=== PATIENT | female | born 1940 | race Two or more races ===

== ENCOUNTER 2025-02-22 21:12 | Inpatient (IN) | payer OTHER, MEDICAID ==
[~2025-02-22] VITALS: Ht 157.5 cm; Wt 78.9 kg
[2025-02-22 21:37] VITALS: PULSE 102; RESP 18; O2SAT 97
[2025-02-22] MEDS: SODIUM CHLORIDE 0.9% 1,000 ML IV ONE ×2 (21:45→21:47)
[2025-02-22 22:01] LABS: Hematocrit 33.6 % (36.0-46.0); Hemoglobin 11.5 g/dL (12.2-16.2); Mean Corpuscular Hemoglobin 28.9 pg (28.0-32.0); Mean Corpuscular Volume 84.6 fL (80.0-100.0); Nucleated Red Blood Cells % 0.0 %
--- NOTE | 2025-02-22 22:03 | ED.PDOC ---
History of Present Illness HPI Comments 84 y/o F, BIBA, with PMHx of UTI's presents to the ED for CC of weakness. Patient states, she has been experiencing symptoms of weakness with associated back pain and fever x3days. Patient reports, recently being discharge from [facility] for a UTI however, has still had symptoms of malaise. Patient denies urinary symptoms, confusion, disorientation, nausea, or vomiting. No other symptoms or modifying factors are present at this time. 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 Family History Family History: Unknown Social History Smoker: Non-Smoker Alcohol: Denies ETOH Use Drugs: Denies Drug Use Lives In: Home Constitutional: reports: fever, weakness; denies: chills, diaphoresis, fatigue, malaise, sweats, others EENTM: denies: blurred vision, double vision, ear bleeding, ear discharge, ear drainage, ear pain, ear ringing, eye pain, eye redness, hearing loss, mouth pain, mouth swelling, nasal discharge, nose bleeding, nose congestion, nose pain, photophobia, tearing, throat pain, throat swelling, voice changes, others Respiratory: denies: cough, hemoptysis, orthopnea, SOB at rest, shortness of breath, SOB with excertion, stridor, wheezing, others Cardiovascular: denies: chest pain, dizzy spells, diaphoresis, Dyspnea on exertion, edema, irregular heart beat, left arm pain, lightheadedness, palpitations, PND, syncope, others Gastrointestinal: denies: abdomen distended, abdominal pain, blood streaked bowels, constipated, diarrhea, dysphagia, difficulty swallowing, hematemesis, melena, nausea, poor appetite, poor fluid intake, rectal bleeding, rectal pain, vomiting, others Genitourinary: denies: abnormal vagina bleeding, burning, dyspareunia, dysuria, flank pain, frequency, hematuria, incontinence, pain, , vagina discharge, urgency, others Neurological: denies: dizziness, fainting, headache, left sided numbness, left sided weakness, numbness, paresthesia, pre-existing deficit, right sided numbness, right sided weakness, seizure, speech problems, tingling, tremors, weakness, others Musculoskeletal: reports: back pain; denies: gout, joint pain, joint swelling, muscle pain, muscle stiffness, neck pain, others Integumetry: denies: bruises, change in color, change in hair/nails, dryness, laceration, lesions, lumps, rash, wounds, others Allergic/Immunocompromised: denies: Difficulty Healing, Frequent Infections, Hives, Itching, others Hematologic/Lymphatic: denies: anemia, blood clots, easy bleeding, easy bruising, swollen glands, others Endocrine: denies: excessive hunger, excessive sweating, excessive thirst, excessive urination, flushing, intolerance to cold, intolerance to heat, unexplained weight gain, unexplained weight loss, others Psychiatric: denies: anxiety, bipolar disorder, depression, hopeless, panic disorder, schizophrenia, sleepless, suicidal, others All Other Systems: Reviewed and Negative Physical Exam General Appearance: No Apparent Distress, Normal HEENT: Normal ENT Inspection, Pharynx Normal Neck: Full Range of Motion, Non-Tender, Normal, Normal Inspection Respiratory: Chest Non-Tender, Lungs Clear, No Accessory Muscle Use, No Respiratory Distress, Normal Breath Sounds Cardiovascular: No Edema, No Murmur, No Gallop, Normal Peripheral Pulses, Regular Rate/Rhythm Breast Exam: Deferred Gastrointestinal: No Organomegaly, Non Tender, No Pulsatile Mass, Normal Bowel Sounds, Soft Genitalia: Deferred Pelvic: Deferred Rectal: Deferred Extremities: No calf tenderness, Normal capillary refill, Normal inspection, Normal range of motion, Non-tender, No pedal edema Musculoskeletal : Apperance: Normal Neurologic: Alert, leaf size picker II-XII nml as Tested, No Motor Deficits, Normal Affect, Normal Mood, No Sensory Deficits Cerebellar Function: Normal Reflexes: Normal Skin: Dry, Normal Color, Warm Lymphatic: No Adenopathy Was a procedure done? Was a procedure done?: No Differential Dx Considerations may include: UTI, DEHYDRATION, HYPOTENSION, ANEMIA, SEPSIS X-Ray, Labs, Meds, VS Vital Signs Date Time Temp Pulse Resp B/P (MAP) Pulse Ox O2 Delivery O2 Flow Rate FiO2 02/22/25 21:37 100.1 102 18 118/50 (72) 97 100.1 11/11/25 21:37 102 18 97 Room Air* 0 21 02/22/25 21:23 101.3 109 20 125/59 96 101.3 Lab Test 02/22/25 22:23 02/22/25 21:50 Range/Units Urine Color Dark-yellow Yellow Urine Clarity Turbid H Clear Urine pH 5.0 5.0-9.0 Urine Specific [place] 1.048 H 1.001-1.035 Urine Protein Trace H Negative Urine Ketones Trace Negative Urine Blood Negative Negative /uL Urine Nitrite Negative Negative Urine Bilirubin Negative Negative Urine Urobilinogen Normal Negative mg/dL Urine Leukocyte Esterase Negative Negative /uL Urine RBC 5 0 - 4 /hpf Urine Microscopic WBC 5 0-5 /HPF Urine Squamous Epithelial Cells Few <5 /hpf Urine Bacteria Few H None Seen /hpf Urine Mucus Few None Seen Urine Glucose 2+ H Normal mg/dL White Blood Count 9.0 4.4-10.8 10^3/uL Red Blood Count 3.97 L 4.0-5.20 10^6/uL Hemoglobin 11.5 L 12.2-16.2 g/dL Hematocrit 33.6 L 36.0-46.0 % Mean Corpuscular Volume 84.6 80.0-100.0 fL Mean Corpuscular Hemoglobin 28.9 28.0-32.0 pg Mean Corpuscular Hemoglobin Concent 34.1 32.0-36.0 g/dL Red Cell Distribution Width 13.5 11.8-14.3 % Platelet Count 214 140-450 10^3/uL Mean Platelet Volume 7.7 6.9-10.8 fL Neutrophils (%) (Auto) 68.2 37.0-80.0 % Lymphocytes (%) (Auto) 17.0 10.0-50.0 % Monocytes (%) (Auto) 8.7 0.0-12.0 % Eosinophils (%) (Auto) 5.3 0.0-7.0 % Basophils (%) (Auto) 0.8 0.0-2.0 % Neutrophils # (Auto) 6.2 1.6-8.6 10 ^3/uL Lymphocytes # (Auto) 1.5 0.4-5.4 10 ^3/uL Monocytes # (Auto) 0.8 0-1.3 10 ^3/uL Eosinophils # (Auto) 0.5 0-0.8 10 ^3/uL Basophils # (Auto) 0.1 0-0.2 10 ^3/uL Nucleated Red Blood Cells 0.0 % Sodium Level 129 L 136-145 mmol/L Potassium Level 5.2 H 3.5-5.1 mmol/L Chloride Level 94 L 98-107 mmol/L Carbon Dioxide Level 25 20-31 mmol/L Anion Gap 10 5-15 Blood Urea Nitrogen 24 H 9-23 mg/dL Creatinine 2.73 H 0.550-1.02 mg/dL Glomerular Filtration Rate Calc 17 >90 mL/min BUN/Creatinine Ratio 8.8 L 10.0-20.0 Serum Glucose 174 H 74-106 mg/dL Lactic Acid Level 1.8 0.4-2.0 mmol/L Calcium Level 9.5 8.7-10.4 mg/dL Total Bilirubin 0.4 0.2-1.0 mg/dL Aspartate Amino Transferase (AST) 24 13-40 U/L Alanine Aminotransferase (ALT) < 9 7-40 U/L Alkaline Phosphatase 69 46-116 U/L Total Protein 7.0 5.7-8.2 g/dL Albumin 3.4 3.2-4.8 g/dL Current Medications Medications (Trade) Dose Ordered Sig/Samir Route Start Time Stop Time Status Last Admin Sodium Chloride 1,000 ml @ 1,000 mls/hr Q1H ONCE IV 02/22/25 21:45 02/22/25 22:44 DC 02/22/25 21:47 X-Ray, Labs, Meds, VS Comment Patient will be admitted for urinary tract infection, complications Concerns of possible early onset sepsis, patient has high fever of 103 and tachycardia patient is a 1 L in his bolus, started on Rocephin 1 g IV, patient tolerating well, blood cultures obtained, Time of 1ST Reevaluation: 22:20 Reevaluation 1ST: Unchanged Patient Education/Counseling: Diagnosis, Treatment Family Education/Counseling: No Family Present SEPSIS Sepsis Screen Date sepsis recognized/suspect: Feb 22, 2025 Time Sepsis recognized/suspect: 2140 Recent Procedure: No On Antibiotic Therapy: No Respiratory Rate >20: No Heart Rate >90: No Temp<36 C (96.8 F) or >38.3 C: No SBP <90 or MAP <65 mmHG: No New Acute Mental Status Change: No Is the patient on CPAP, BIPAP,: No Physician Orders Sodium Chloride 0.9% (02/22/25 21:45) Vital Signs Q1HR (02/22/25 21:33) Saline Lock (02/22/25 21:33) Support Manager (02/22/25 ) Rectal/Core Temps Only (02/22/25 21:33) Notify Md If Abnormal Vs (02/22/25 21:33) Blood Culture (02/22/25 21:33) Chest Xray 1 View (02/22/25 21:33) Insert/Manage Urinary Catheter QSHIFT (02/22/25 22:18) Urine Bacterial Culture (02/22/25 22:18) Ceftriaxone 1gm/50ml (Rocephin) (02/22/25 23:00) Vital Signs Date Time Temp Pulse Resp B/P (MAP) Pulse Ox O2 Delivery O2 Flow Rate FiO2 02/22/25 21:37 100.1 102 18 118/50 (72) 97 100.1 02/22/25 21:37 102 18 97 Room Air* 0 21 02/22/25 21:23 101.3 109 20 125/59 96 101.3 Laboratory Tests Test 02/22/25 21:50 Lactic Acid Level 1.8 mmol/L (0.4-2.0) White Blood Count 9.0 10^3/uL (4.4-10.8) Medications Medications Dose Ordered Sig/Samir Route Start Time Stop Time Status Last Admin Dose Admin Sodium Chloride 1,000 ml @ 1,000 mls/hr Q1H ONCE IV 02/22/25 21:45 02/22/25 22:44 DC 02/22/25 21:47 Departure 1 Departure Time of Disposition: 22:52 Impression: Primary Impression: UTI (urinary tract infection) Qualified Codes: N30.01 - Acute cystitis with hematuria Disposition: ADMITTED INPATIENT Condition: Fair Discharged With: Self Critical Care Note Critical Care Time?: No Stability Stability form required: No Heart Score Heart Score: Heart Score Response (Comments) Value History N/A 0 EKG N/A 0 Age N/A 0 Risk Factors N/A 0 Troponin N/A 0 Total 0 I personally scribed for REE SHELLEY ([email or web address]) on 02/22/25 at 22:02. Electronically submitted by Heaven Christensen [email or web address]). REE SHELLEY Feb 22, 2025 22:02
[2025-02-22 22:17] LABS: Albumin 3.4 g/dL (3.2-4.8); Alkaline Phosphatase 69 U/L (46-116); Anion Gap 10 (5-15); BUN/Creatinine Ratio 8.8 (10.0-20.0); Calcium 9.5 mg/dL (8.7-10.4); Carbon Dioxide 25 mmol/L (20-31); Total Protein 7.0 g/dL (5.7-8.2)
[2025-02-22 22:18] LABS: Bilirubin, Total 0.4 mg/dL (0.2-1.0)
[2025-02-22 22:20] LABS: Alanine Aminotransferase < 9 U/L (7-40); Blood Urea Nitrogen 24 mg/dL (9-23); Chloride 94 mmol/L (98-107); Glucose 174 mg/dL (74-106); Potassium 5.2 mmol/L (3.5-5.1); Sodium 129 mmol/L (136-145)
--- NOTE | 2025-02-22 22:24 | DVH ---
CLINICAL HISTORY: Suspected Sepsis TECHNIQUE: Single view of the chest was obtained. COMPARISON: None FINDINGS: The heart size is top-normal with pulmonary vascular congestion. There is no dense consolidation. IMPRESSION: Pulmonary vascular congestion.
[2025-02-22 22:46] LABS: Urine Protein, UAD TRACE (Negative)
[2025-02-22] MEDS: HYDROcodone-ACET 5/325MG TAB PO ONE (23:30)
[2025-02-23] MEDS ORDERED: MORPHINE SULFATE INJ 2 MG/ml SYRG IV PRN (01:00)
[2025-02-23] MEDS ORDERED: ACETAMINOPHEN 325 MG TAB PO PRN (01:00)
[2025-02-23] MEDS ORDERED: DOCUSATE SOD 100 MG CAP PO PRN (01:00)
[2025-02-23] MEDS ORDERED: ONDANSETRON HCL 4 MG/2 ML VIAL IV PRN (01:00)
[2025-02-23] MEDS ORDERED: NITROGLYCERIN 0.4 MG SL TAB SL PRN (01:00)
[2025-02-23] MEDS ORDERED: DEXTROSE (50%) 50ML SYRG IV PRN (01:00)
[2025-02-23] MEDS: SODIUM CHLORIDE 0.9% 1,000 ML IV SCH ×3 (01:20→17:35)
--- NOTE | 2025-02-23 01:37 | DVH ---
INDICATION: Acute kidney injury TECHNIQUE: Multiple real-time sonographic images of the kidneys and bladder were obtained. COMPARISON: None FINDINGS: The right kidney measures 12.2 cm in length. There is normal echogenicity of the right kidney. No hydronephrosis. Trace right perinephric fluid is seen. The left kidney measures 10.2 cm in length. There is normal echogenicity of the left kidney. No hydronephrosis. The urinary bladder is contracted. IMPRESSION: 1. Trace right perinephric fluid. No hydronephrosis.
--- NOTE | 2025-02-23 02:16 | DVH ---
Exam: CT CT AB PEL WO CON-NO ORAL OR IV History: pain Comparison Study: None Technique: Multidetector spiral CT of the abdomen was performed from lung bases to pubic symphysis. Imaging was performed without IV contrast. Axial, coronal and sagittal multiplanar reformats were obtained from the axial data set by the technologist. Radiation Dose : 1. Abdomen/Pelvis: CTDIvol 8.2 mGy, DLP 468.96 mGy*cm. Findings: Evaluation of solid organs is limited due to lack of intravenous contrast use. Coronary artery calcifications noted. Cardiomegaly is Lung Bases: Minor hypoventilatory changes are seen in the lung bases dependently. Liver: The liver is normal in size. No focal lesions. Gallbladder and Biliary Tree: High-density material dependently in the gallbladder may represent small stones. Gallbladder otherwise appears unremarkable. Spleen: Unremarkable Pancreas: The pancreas is grossly normal in appearance. Adrenal Glands: Unremarkable Kidneys: Kidneys are grossly normal without calculi or hydronephrosis. Bladder: Grossly unremarkable for degree of distention. Bowel: The stomach is grossly normal in appearance. Small bowel and colon are normal in caliber and distribution. The appendix is not visualized; however, no secondary findings of acute appendicitis identified. Ascites: Absent Lymphadenopathy: There are enlarged lymph nodes seen along the lower abdominal aorta. Enlarged nodes are also seen along the left iliac chain. Largest node measures 1.8 cm. Abdominal Wall and Mesentery: Unremarkable. Vasculature: The visualized abdominal aorta is normal in size and caliber. Evaluation of abdominal and pelvic vessels is limited due to lack of intravenous contrast. Diffuse atherosclerotic disease is seen normal aorta Pelvic Organs: 2.7 cm right ovarian cyst is noted. Bladder is decompressed with a Fong catheter. Musculoskeletal: No aggressive focal bony lesions, acute fractures or dislocation. IMPRESSION: 1. No acute abnormalities. 2. Enlarged lower abdominal and left iliac chain lymph nodes. 3. 2.7 cm right ovarian cyst. 4. Cholelithiasis. Radiation optimization: All CT scans at this facility use at least one of these dose optimization techniques: automated exposure control mA and/or kV adjustment per patient size (includes targeted exams where dose is matched to clinical indication) or iterative reconstruction.
--- NOTE | 2025-02-23 03:24 | DVHHP2 ---
FILOMENA FAJARDO KEY OPERATOR 02/23/25 0324: History of Present Illness Reason for Visit: Generalized weakness History of Present Illness 84-year-old female with past medical history of DM, hypertension, CVA, TX s/p PCI with stent to LAD, CHF LVEF 45% 02/03/25, recent lymph node biopsy pending results for lymphoma evaluation presents with complaints of generalized weakness. Patient was recently discharged from [facility] where she was admitted for UTI sepsis. Patient presents with complaints of back pain, fever x3 days. On arrival to the emergency department patient is noted to be febrile 101.3, BP 125/59, heart rate 109. During the emergency department evaluation CBC is unremarkable, CMP Na 129, K5.2, BUN 24, creatinine 2.73, GFR 17. LA 1.8. On February 19, 2025 GFR 88 with normal BUN creatinine. At this ti me there are no complaints of confusion, shortness of breath, chest pain, palpitations nausea, vomiting. 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 Endocrine: Diabetes Smoke: No ALCOHOL: heavy Drugs: None Lives: with Family Review of Systems Constitutional: Yes: Fever, Chills, Weakness, Malaise; No: Sweats, Other Eyes: No: Pain, Vision change, Conjunctivae inflammation, Eyelid inflammation, Other, Redness ENT: No: Ear pain, Ear discharge, Nose pain, Nose discharge, Nose congestion, Mouth pain, Mouth swelling, Throat pain, Throat swelling, Other Respiratory: No: Cough, Dry, Shortness of breath, SOB with excertion, Wheezing, Hemoptysis, Pleuritic Pain, Sputum, Wheezing, Other Cardiovascular: No: Chest Pain, Palpitations, Orthopnea, Paroxysmal Noc. Dyspnea, Edema, Lt Headedness, Other Gastrointestinal: No: Nausea, Vomiting, Abdominal Pain, Diarrhea, Constipation, Melena, Hematochezia, Other Genitourinary: No Dysuria, No Frequency, No Incontinence, No Hematuria, No Retention, No Other Musculoskeletal: back pain; No: other, neck pain, shoulder pain, arm pain, hand pain, leg pain, foot pain Skin: No: Rash, Lesions, Jaundice, Bruising, Other Neurological: No: Weakness, Numbness, Incoordination, Change in speech, Confusion, Seizures, Other Allergies: Coded Allergies: NO KNOWN ALLERGIES (Unverified , 02/22/25) Medications Current Medications Medications Dose Ordered Sig/Samir Route Start Time Stop Time Status Last Admin Dose Admin Docusate Sodium 100 mg BIDPRN PRN PO 02/23/25 01:00 Acetaminophen 650 mg Q6HP PRN PO 02/23/25 01:00 Acetaminophen/ Hydrocodone Bitart 1 tab Q6HP PRN PO 02/23/25 01:00 Ondansetron HCl 4 mg Q4HP PRN IV 02/23/25 01:00 Nitroglycerin 0.4 mg Q5MINP PRN SL 02/23/25 01:00 Morphine Sulfate 2 mg Q30M PRN IV 02/23/25 01:00 Diagnostic Test (Pha) 1 strip ACHS 02/23/25 07:00 Insulin Human Regular ACHS SC 02/23/25 07:00 Dextrose 50 ml UD PRN IV 02/23/25 01:00 Cefepime HCl 50 ml @ 50 mls/hr BID IV 02/23/25 10:00 Sodium Chloride 1,000 ml @ 75 mls/hr [id number] IV 02/23/25 03:15 02/23/25 16:34 UNV Exam Vital Signs Vital Signs Date Time Temp Pulse Resp B/P (MAP) Pulse Ox O2 Delivery O2 Flow Rate FiO2 02/23/25 02:32 98.1 78 18 106/45 (65) 97 98.1 02/22/25 21:37 Room Air* 0 21 General Appearance: Alert, Oriented X3, Cooperative, moderate distress HEENT: Atraumatic, PERRLA Respiratory: Clear to auscultation, Normal air movement Cardiovascular: Regular rate, Normal S1, Normal S2 Abdominal: Normal bowel sounds, Soft, No tenderness Extremities: Normal pulses, Other (BLE edema 1+, BUE edema 1+) Skin: No rashes Neuro: Normal speech, Strength at 5/5 X4 ext Psych/Mental Status: Mental status NL, Mood NL Labs/Xrays Labs Test 02/22/25 22:23 02/22/25 21:50 Range/Units Urine Color Dark-yellow Yellow Urine Clarity Turbid H Clear Urine pH 5.0 5.0-9.0 Urine Specific [place] 1.048 H 1.001-1.035 Urine Protein Trace H Negative Urine Ketones Trace Negative Urine Blood Negative Negative /uL Urine Nitrite Negative Negative Urine Bilirubin Negative Negative Urine Urobilinogen Normal Negative mg/dL Urine Leukocyte Esterase Negative Negative /uL Urine RBC 5 0 - 4 /hpf Urine Microscopic WBC 5 0-5 /HPF Urine Squamous Epithelial Cells Few <5 /hpf Urine Bacteria Few H None Seen /hpf Urine Mucus Few None Seen Urine Glucose 2+ H Normal mg/dL White Blood Count 9.0 4.4-10.8 10^3/uL Red Blood Count 3.97 L 4.0-5.20 10^6/uL Hemoglobin 11.5 L 12.2-16.2 g/dL Hematocrit 33.6 L 36.0-46.0 % Mean Corpuscular Volume 84.6 80.0-100.0 fL Mean Corpuscular Hemoglobin 28.9 28.0-32.0 pg Mean Corpuscular Hemoglobin Concent 34.1 32.0-36.0 g/dL Red Cell Distribution Width 13.5 11.8-14.3 % Platelet Count 214 140-450 10^3/uL Mean Platelet Volume 7.7 6.9-10.8 fL Neutrophils (%) (Auto) 68.2 37.0-80.0 % Lymphocytes (%) (Auto) 17.0 10.0-50.0 % Monocytes (%) (Auto) 8.7 0.0-12.0 % Eosinophils (%) (Auto) 5.3 0.0-7.0 % Basophils (%) (Auto) 0.8 0.0-2.0 % Neutrophils # (Auto) 6.2 1.6-8.6 10 ^3/uL Lymphocytes # (Auto) 1.5 0.4-5.4 10 ^3/uL Monocytes # (Auto) 0.8 0-1.3 10 ^3/uL Eosinophils # (Auto) 0.5 0-0.8 10 ^3/uL Basophils # (Auto) 0.1 0-0.2 10 ^3/uL Nucleated Red Blood Cells 0.0 % Sodium Level 129 L 136-145 mmol/L Potassium Level 5.2 H 3.5-5.1 mmol/L Chloride Level 94 L 98-107 mmol/L Carbon Dioxide Level 25 20-31 mmol/L Anion Gap 10 5-15 Blood Urea Nitrogen 24 H 9-23 mg/dL Creatinine 2.73 H 0.550-1.02 mg/dL Glomerular Filtration Rate Calc 17 >90 mL/min BUN/Creatinine Ratio 8.8 L 10.0-20.0 Serum Glucose 174 H 74-106 mg/dL Lactic Acid Level 1.8 0.4-2.0 mmol/L Calcium Level 9.5 8.7-10.4 mg/dL Total Bilirubin 0.4 0.2-1.0 mg/dL Aspartate Amino Transferase (AST) 24 13-40 U/L Alanine Aminotransferase (ALT) < 9 7-40 U/L Alkaline Phosphatase 69 46-116 U/L Total Protein 7.0 5.7-8.2 g/dL Albumin 3.4 3.2-4.8 g/dL SEPSIS Sepsis Screen Date sepsis recognized/suspect: Feb 22, 2025 Time Sepsis recognized/suspect: 2140 Recent Procedure: No On Antibiotic Therapy: No Respiratory Rate >20: No Heart Rate >90: No Temp<36 C (96.8 F) or >38.3 C: No SBP <90 or MAP <65 mmHG: No New Acute Mental Status Change: No Is the patient on CPAP, BIPAP,: No Physician Orders Sodium Chloride 0.9% (02/22/25 21:45) Vital Signs Q1HR (02/22/25 21:33) Saline Lock (02/22/25 21:33) Deputy Chief Magistrate (02/22/25 ) Rectal/Core Temps Only (02/22/25 21:33) Notify Md If Abnormal Vs (02/22/25 21:33) Blood Culture (02/22/25 21:33) Chest Xray 1 View (02/22/25 21:33) Insert/Manage Urinary Catheter QSHIFT (02/22/25 22:18) Urine Bacterial Culture (02/22/25 22:18) Rapid Influenza A&B (02/23/25 00:34) Covid19 Antigen Vivian (02/23/25 ) Kidney (02/23/25 00:47) Admit (02/23/25 00:51) Code Status (02/23/25 00:51) Vital Signs .PER UNIT PROTOCOL (02/23/25 00:51) Review Orders With Adm.Md (02/23/25 00:51) Encourage Activity As Tolerate (02/23/25 00:51) Consistent Carb(Ccho)Diabetes (02/23/25 Breakfast) Oxygen By Face Mask (02/23/2551) Docusate Sodium Capsule (Colace Capsule) (02/23/25 01:00) Acetaminophen Tablet (Tylenol Tablet) (02/23/25 01:00) Notify Md Of Changes From Base (02/23/2551) Advance Directive (02/23/2551) Ct Ab Pel Wo Con-No Oral Or Iv (02/23/25) Basic Metabolic Panel (02/23/25 05:00) Basic Metabolic Panel (02/24/25 05:00) Basic Metabolic Panel (02/25/25 05:00) Basic Metabolic Panel (02/26/25 05:00) Basic Metabolic Panel (02/27/25 05:00) Complete Blood Count (02/23/25 05:00) Complete Blood Count (02/24/25 05:00) Complete Blood Count (02/25/25 05:00) Complete Blood Count (02/26/25 05:00) Complete Blood Count (02/27/25 05:00) Patient Condition (02/23/2551) Allergies (02/23/25) Hydrocodone-Acet 5/325mg Tab ([place] 5/32 (02/23/25 01:00) Ondansetron Hcl (Zofran) (02/23/25:00) Sequential Compression Device (02/23/25 ) Nitroglycerin Sublingual (Ntrostat Subli (02/23/25:00) Morphine Sulfate Injection (02/23/25:) Stat Ekg For Chest Pain (02/23/25) Notify Md Of Changes From Base (02/23/25) Cloth Shearing Supervisor For 24 Hours (02/23/2551) Emergency Dysrhythmia Protocol (02/23/25) Rhythm Strips Once Every Shift (02/23/25) Oxygen By Nasal Cannula (02/23/25) *Dr. Wilfredo Garcia -[place] (02/23/25) Glucose Blood (Accu-Chek Comfort Curve T (02/23/25 07:00) Insulin R (Human) (Insulin R) (02/23/25 07:00) Dextrose 50% Syringe (02/23/25 01:00) Cefepime 1gm/50ml (Maxipime 1gm/50ml) (02/23/25 10:00) Sodium Chloride 0.9% (02/23/25 03:15) Clopidogrel Bisulfate (Plavix) (02/23/25 10:00) Aspirin Tablet (02/23/25 10:00) Atorvastatin (Lipitor) (02/23/25 22:00) Vital Signs Date Time Temp Pulse Resp B/P (MAP) Pulse Ox O2 Delivery O2 Flow Rate FiO2 02/23/25 02:32 98.1 78 18 106/45 (65) 97 98.1 02/22/25 23:20 100.0 93 18 102/39 (60) 97 100.0 02/22/25 21:37 100.1 102 18 118/50 (72) 97 100.1 02/22/25 21:37 102 18 97 Room Air* 0 21 02/22/25 21:23 101.3 109 20 125/59 96 101.3 Laboratory Tests Test 02/22/25 21:50 Lactic Acid Level 1.8 mmol/L (0.4-2.0) White Blood Count 9.0 10^3/uL (4.4-10.8) Medications Medications Dose Ordered Sig/Samir Route Start Time Stop Time Status Last Admin Dose Admin Acetaminophen/ Hydrocodone Bitart 1 tab ONCE ONCE PO 02/22/25 23:30 02/22/25 23:31 DC 02/22/25 23:30 1 TAB Ceftriaxone Sodium 50 ml @ 100 mls/hr ONCE ONCE IV 02/22/25 23:00 02/22/25 23:29 DC 02/22/25 23:00 100 MLS/HR Sodium Chloride 1,000 ml @ 75 mls/hr [id number] IV 02/23/25 01:00 02/23/25 03:04 DC 02/23/25 01:20 75 MLS/HR Sodium Chloride 1,000 ml @ 130 mls/hr [id number] ONCE IV 02/22/25 21:45 02/23/25 05:26 02/22/25 21:45 130 MLS/HR Sodium Chloride 1,000 ml @ 1,000 mls/hr Q1H ONCE IV 02/22/25 21:45 02/22/25 22:44 DC 02/22/25 21:47 1,000 MLS/HR Assessment/Plan Assessment/Plan Acute kidney injury, [GFR 88(02/19/25) -> GFR 17] Hyperkalemia Fever likely secondary to UTI DM with hyperglycemia Enlarged lymph nodes s/p lymph node biopsy CAD s/p PCI to LAD 02/04/25 CHF estimated LVEF 45% Hx CVA Plan Admit to telemetry Nephrology consult. Renal ultrasound. Monitor BMP. Trend BUN/creatinine. Strict intake and output. Indwelling Fong catheter. Correct electrolytes as needed. Hold AMANDA / ARBS. IV ABX Viral swabs, Blood culture, urine cultures, pending IVF Blood glucose check with regular insulin sliding scale coverage Continue home medication. DVT ppx on oral anticoagulation Plan discussed with: Patient, Daughter My Orders Orders - FILOMENA FAJARDO NP Procedure Category Date Status Time Rapid Influenza A&B LAB 02/23/25 Logged 00:34 Covid19 Antigen Vivian LAB 02/23/25 Logged Kidney US 02/23/25 Resulted 00:47 Admit ADMIT 02/23/25 Transmitted 00:51 Code Status CODE 02/23/25 Transmitted 00:51 Vital Signs LONG 02/23/25 In Process 00:51 Review Orders With LONG 02/23/25 In Process Adm. 00:51 Encourage Activity As LONG 02/23/25 In Process Tolerate 00:51 Consistent DIET 02/23/25 Transmitted Carb(Ccho)Diabetes Breakfast Oxygen By Face Mask RT 02/23/25 Transmitted 00:51 Docusate Sodium PHA 02/23/25 In Process Capsule (Colace 01:00 Acetaminophen Tablet PHA 02/23/25 In Process (Tylenol Tablet) 01:00 Notify Of Changes LONG 02/23/25 In Process From Base 00:51 Advance Directive LONG 02/23/25 In Process 00:51 Ct Ab Pel Wo Con-No CT 02/23/25 Resulted Oral Or Iv 00:51 Basic Metabolic Panel LAB 02/23/25 Logged 05:00 Basic Metabolic Panel LAB 02/24/25 Verified 05:00 Basic Metabolic Panel LAB 02/25/25 Verified 05:00 Basic Metabolic Panel LAB 02/26/25 Verified 05:00 Basic Metabolic Panel LAB 02/27/25 Verified 05:00 Complete Blood Count LAB 02/23/25 Logged 05:00 Complete Blood Count LAB 02/24/25 Verified 05:00 Complete Blood Count LAB 02/25/25 Verified 05:00 Complete Blood Count LAB 02/26/25 Verified 05:00 Complete Blood Count LAB 02/27/25 Verified 05:00 Patient Condition ORDERS 02/23/25 Transmitted 00:51 Allergies [facility] 02/23/25 In Process 00:51 Hydrocodone-Acet PHA 02/23/25 In Process 5/325mg Tab ([place] 01:00 Ondansetron Hcl PHA 02/23/25 In Process (Zofran) 01:00 Sequential LONG 02/23/25 In Process Compression Device Nitroglycerin [facility] 02/23/25 In Process Sublingual (Ntrostat 01:00 Morphine Sulfate PHA 02/23/25 In Process Injection 01:00 Stat Ekg For Chest [facility] 02/23/25 In Process Pain 00:51 Notify Of Changes [facility] 02/23/25 In Process From Base 00:51 Cloth Shearing Supervisor For [facility] 02/23/25 In Process 24 Hours 00:51 Emergency Dysrhythmia [facility] 02/23/25 In Process Protocol 00:51 Rhythm Strips Once [facility] 02/23/25 In Process Every Shift 00:51 Oxygen By Nasal RT 02/23/25 Transmitted Cannula 00:51 *Dr. [facility] CONS 02/23/25 Transmitted -[place] 00:51 Glucose Blood PHA 02/23/25 In Process (Accu-Chek Comfort 07:00 Insulin R (Human) PHA 02/23/25 In Process (Insulin R) 07:00 Dextrose 50% Syringe PHA 02/23/25 In Process 01:00 Cefepime 1gm/50ml PHA 02/23/25 In Process (Maxipime 1gm/50ml) 10:00 Sodium Chloride 0.9% PHA 02/23/25 In Process 03:15 Clopidogrel Bisulfate PHA 02/23/25 In Process (Plavix) 10:00 Aspirin Tablet PHA 02/23/25 In Process 10:00 Atorvastatin (Lipitor) PHA 02/23/25 In Process 22:00 Date of Service: Feb 23, 2025 Billing Provider: SIGRID OLIVER MD Common Visit Codes: NOT BILLABLE SIGRID OLIVER MD 02/23/25 1255: Review of Systems Allergies: Coded Allergies: NO KNOWN ALLERGIES (Unverified , 02/22/25) Additional Comments Additional Comments Additional Comments Patient's chart is reviewed and discussed with the nurse practitioner. Patient is seen evaluated and admitted by KEY OPERATOR base filler operator. I agree with his evaluation, documentation, assessment and care plan as outlined. Patient's recent hospitalizations at [facility] personally reviewed by me. Patient's lymph node biopsy is pending and appears her fever and night sweats or secondary to type B symptoms from lymphoma not from infection. Till cultures are available we will empirically continue current antibiotic as she is on. FILOMENA FAJARDO NP Feb 23, 2025 03:24 SIGRID OLIVER MD Feb 23, 2025 12:55
[2025-02-23] MEDS: HYDROcodone-ACET 5/325MG TAB PO PRN (03:44)
[2025-02-23] MEDS: ACCU-CHEK COMFORT CURVE STRIP VI SCH (06:02)
[2025-02-23] MEDS: InsuLIN REG 1unit/0.01ml Soln (100units/ml) SC SCH (06:13)
[2025-02-23 06:49] LABS: Hematocrit 30.6 % (36.0-46.0); Hemoglobin 10.3 g/dL (12.2-16.2); Mean Corpuscular Hemoglobin 28.8 pg (28.0-32.0); Mean Corpuscular Volume 85.2 fL (80.0-100.0); Nucleated Red Blood Cells % 0.1 %
[2025-02-23 07:05] LABS: Anion Gap 10 (5-15); Carbon Dioxide 23 mmol/L (20-31); Potassium 5.1 mmol/L (3.5-5.1)
[2025-02-23 07:12] LABS: BUN/Creatinine Ratio 10.6 (10.0-20.0)
[2025-02-23 07:13] LABS: Blood Urea Nitrogen 32 mg/dL (9-23); Calcium 8.7 mg/dL (8.7-10.4); Chloride 95 mmol/L (98-107); Glucose 117 mg/dL (74-106); Sodium 128 mmol/L (136-145)
[2025-02-23] MEDS: CEFEPIME 1GM/50ML 50 ML IV SCH (11:23)
[2025-02-23] MEDS: CLOPIDOGREL BISULFATE 75 MG TAB PO SCH (11:24)
[2025-02-23] MEDS ORDERED: SODIUM CHLORIDE 0.9% 1,000 ML IV SCH (12:30)
[2025-02-23] MEDS: SODIUM CHLORIDE 0.9% 1,000 ML IV ONE (12:30)
[2025-02-23 12:40] LABS: COVID19 ANTIGEN SOFIA FIA NEGATIVE (NEGATIVE)
[2025-02-23 13:04] LABS: Uric Acid 7.3 mg/dL (3.1-7.8)
[2025-02-23 13:06] LABS: Magnesium 1.7 mg/dL (1.6-2.6)
--- NOTE | 2025-02-23 13:32 | DVHCONRES ---
Date Seen: Feb 23, 2025 Resident Creating Document: SHANDA TORRES RESDIENT History of Present Illness This is an 84-year-old lady with past medical history of diabetes type 2, hypertension, CVA, coronary artery disease (status post PCI 15 days back at [facility]), congestive heart failure (EF 45%), recent lymph node biopsy, came to the hospital due to fever, chills and generalized weakness. Patient was recently admitted at [facility] due to fever and was found to have UTI. Three days back patient was discharged from [facility] with oral antibiotic, but after 1 day the patient got back fever which prompted this visit. Allergies: Coded Allergies: NO KNOWN ALLERGIES (Unverified , 02/22/25) Home Meds Reported Medications Zolpidem Tartrate (Zolpidem Tartrate) 10 Mg Tab, 1 TAB PO QPM, #30 TAB 2 Refills 02/23/25 Current Medications Current Medications Medications (Trade) Dose Ordered Sig/Samir Route PRN Reason Start Time Stop Time Status Last Admin Sodium Chloride 1,000 ml @ 75 mls/hr [id number] IV 02/23/25 01:00 02/23/25 03:04 DC 02/23/25 01:20 Docusate Sodium (Colace Capsule) 100 mg BIDPRN PRN PO FOR CONSTIPATION 02/23/25 01:00 Acetaminophen (Tylenol Tablet) 650 mg Q6HP PRN PO PAIN SCALE 1-3 OR TEMP>100.4 02/23/25 01:00 Acetaminophen/ Hydrocodone Bitart ([place] 5/325MG Tab) 1 tab Q6HP PRN PO MODERATE PAIN (4-6 PAIN SCALE) 02/23/25 01:00 02/23/25 03:44 Ondansetron HCl (Zofran) 4 mg Q4HP PRN IV NAUSEA / VOMITING 02/23/25 01:00 Nitroglycerin (Ntrostat Sublingual) 0.4 mg Q5MINP PRN SL FOR CHEST PAIN 02/23/25 01:00 Morphine Sulfate 2 mg Q30M PRN IV FOR CHEST PAIN 02/23/25 01:00 Diagnostic Test (Pha) (Accu-Chek Comfort Curve T) 1 strip ACHS 02/23/25 07:00 02/23/25 11:30 Insulin Human Regular (InsuLIN R) ACHS SC 02/23/25 07:00 02/23/25 06:13 Dextrose 50 ml UD PRN IV Blood Sugar LESS THAN 60 02/23/25 01:00 Cefepime HCl 50 ml @ 50 mls/hr BID IV 02/23/25 10:00 02/23/25 11:23 Sodium Chloride 1,000 ml @ 75 mls/hr [id number] IV 02/23/25 03:15 02/23/25 12:29 DC 02/23/25 06:07 Clopidogrel Bisulfate (Plavix) 75 mg DAILY PO 02/23/25 10:00 02/23/25 11:24 Aspirin 81 mg DAILY PO 02/23/25 10:00 02/23/25 11:24 Atorvastatin Calcium (Lipitor) 80 mg HS PO 02/23/25 22:00 Sodium Chloride 1,000 ml @ 125 mls/hr Q8H IV 02/23/25 12:30 Review of Systems Patient Seen and examined at the bedside. Patient is still complaining of chills. Vital Signs Vital Signs Date Time Temp Pulse Resp B/P (MAP) Pulse Ox O2 Delivery O2 Flow Rate FiO2 02/23/25 10:00 78 16 125/51 (75) 95 02/23/25 08:00 97.7 97.7 02/22/25 21:37 Room Air* 0 21 Physical Exam General Appearance: Alert, Oriented X3, Cooperative, No acute distress HEENT: Atraumatic, PERRLA, EOMI, Mucous membrane moist/pink Respiratory: Bilateral lower zone crackles Cardiovascular: Regular rate, Normal S1, Normal S2, No murmurs, no chest wall tenderness Abdominal: Normal bowel sounds, Soft, No tenderness, No hepatospenomegaly, No masses Extremities: Bilateral trace edema Skin: No rashes, No breakdown, No significant lesion Neuro: Normal gait, Normal speech, Strength at 5/5 X4 ext, Normal tone, Sensation intact, Cranial nerves 3-12 NL, Reflexes 2+ Psych/Mental Status: Mental status NL, Mood NL Labs/Diagnostic Data Labs Test 02/23/25 11:46 02/23/25 11:42 02/23/25 06:10 02/22/25 22:23 Range/Units Influenza Type A Antigen Negative Negative Influenza Type B Antigen Negative Negative SARS-CoV-2 Antigen (Rapid) Negative NEGATIVE POC Glucose 137 H 70-106 mg/dl White Blood Count 8.1 4.4-10.8 10^3/uL Red Blood Count 3.59 L 4.0-5.20 10^6/uL Hemoglobin 10.3 L 12.2-16.2 g/dL Hematocrit 30.6 L 36.0-46.0 % Mean Corpuscular Volume 85.2 80.0-100.0 fL Mean Corpuscular Hemoglobin 28.8 28.0-32.0 pg Mean Corpuscular Hemoglobin Concent 33.8 32.0-36.0 g/dL Red Cell Distribution Width 13.8 11.8-14.3 % Platelet Count 185 140-450 10^3/uL Mean Platelet Volume 7.8 6.9-10.8 fL Neutrophils (%) (Auto) 47.1 37.0-80.0 % Lymphocytes (%) (Auto) 31.7 10.0-50.0 % Monocytes (%) (Auto) 14.5 H 0.0-12.0 % Eosinophils (%) (Auto) 5.9 0.0-7.0 % Basophils (%) (Auto) 0.8 0.0-2.0 % Neutrophils # (Auto) 3.8 1.6-8.6 10 ^3/uL Lymphocytes # (Auto) 2.6 0.4-5.4 10 ^3/uL Monocytes # (Auto) 1.2 0-1.3 10 ^3/uL Eosinophils # (Auto) 0.5 0-0.8 10 ^3/uL Basophils # (Auto) 0.1 0-0.2 10 ^3/uL Nucleated Red Blood Cells 0.1 % Sodium Level 128 L 136-145 mmol/L Potassium Level 5.1 3.5-5.1 mmol/L Chloride Level 95 L 98-107 mmol/L Carbon Dioxide Level 23 20-31 mmol/L Anion Gap 10 5-15 Blood Urea Nitrogen 32 H 9-23 mg/dL Creatinine 3.03 H 0.550-1.02 mg/dL Glomerular Filtration Rate Calc 15 >90 mL/min BUN/Creatinine Ratio 10.6 10.0-20.0 Serum Glucose 117 H 74-106 mg/dL Uric Acid 7.3 3.1-7.8 mg/dL Calcium Level 8.7 8.7-10.4 mg/dL Phosphorus Level 5.7 H 2.4-5.1 mg/dL Magnesium Level 1.7 1.6-2.6 mg/dL Urine Color Dark-yellow Yellow Urine Clarity Turbid H Clear Urine pH 5.0 5.0-9.0 Urine Specific [place] 1.048 H 1.001-1.035 Urine Protein Trace H Negative Urine Ketones Trace Negative Urine Blood Negative Negative /uL Urine Nitrite Negative Negative Urine Bilirubin Negative Negative Urine Urobilinogen Normal Negative mg/dL Urine Leukocyte Esterase Negative Negative /uL Urine RBC 5 0 - 4 /hpf Urine Microscopic WBC 5 0-5 /HPF Urine Squamous Epithelial Cells Few <5 /hpf Urine Bacteria Few H None Seen /hpf Urine Mucus Few None Seen Urine Glucose 2+ H Normal mg/dL Test 02/22/25 21:50 Range/Units Lactic Acid Level 1.8 0.4-2.0 mmol/L Total Bilirubin 0.4 0.2-1.0 mg/dL Aspartate Amino Transferase (AST) 24 13-40 U/L Alanine Aminotransferase (ALT) < 9 7-40 U/L Alkaline Phosphatase 69 46-116 U/L Total Protein 7.0 5.7-8.2 g/dL Albumin 3.4 3.2-4.8 g/dL Microbiology Date/Time Source Procedure Growth Status 02/22/25 22:18 Urine - Catheterized Urine Culture - Preliminary No growth Resulted Assessment This is an 84-year-old lady with past medical history of diabetes type 2, hypertension, CVA, coronary artery disease (status post PCI 15 days back at [facility]), congestive heart failure (EF 45%), recent lymph node biopsy, came to the hospital due to fever, chills and generalized weakness. Patient was recently admitted at [facility] due to fever and was found to have UTI. Three days back patient was discharged from [facility] with oral antibiotic, but after 1 day the patient got back fever which prompted this visit. CHANA /likely acute tubular necrosis secondary to IV contrast{ patient received two CT scans on February 19 and February 21 with IV contrast in [facility]} Baseline normal renal function GFR 86 creatinine less than one on February 19, 2025 Diabetes type 2 Hypertension Hyponatremia Hyperkalemia, resolved Urinary tract infection History of CAD, status post PCI Heart failure with reduced ejection fraction Mild anemia lymphadenopathy, status post biopsy, reports not available Plan/recommendation (Dr. Stewart) * IV fluid as ordered plus IV Lasix * Check urine sodium, creatinine urine protein ratio * Avoid nephrotoxic medication * Strict I&Os * We will follow up with the patient Thank you for giving us the opportunity to the care of your patient. Please call back if you have any questions/concerns. Addendum Patient seen and examined, plan discussed with resident. Agree with above, we will follow closely I have reviewed [facility] records patient was recently discharged two days ago with normal renal function however she has received two CT scans with IV contrast on February 19 and February 21 highly suspect Acute kidney injury secondary to IV contrast will follow ivf +lasix Plan discussed with: Patient, Other (RN) SHANDA TORRES Feb 23, 2025 13:32 KASHMIR STEWART MD Feb 23, 2025 17:15
[2025-02-23 15:38] LABS: Potassium 4.6 mmol/L (3.5-5.1)
[2025-02-23 15:39] LABS: Anion Gap 11 (5-15); Carbon Dioxide 22 mmol/L (20-31)
[2025-02-23 15:45] LABS: BUN/Creatinine Ratio 10.9 (10.0-20.0)
[2025-02-23 15:46] LABS: Blood Urea Nitrogen 34 mg/dL (9-23); Calcium 8.1 mg/dL (8.7-10.4); Chloride 96 mmol/L (98-107); Glucose 121 mg/dL (74-106); Sodium 129 mmol/L (136-145)
[2025-02-23 16:18] VITALS: BP 127/64; PULSE 86; RESP 19; TEMP 97.9; O2SAT 97
[2025-02-23] MEDS ORDERED: ZOLP10TA6 PO (16:22)
[2025-02-23 17:16] VITALS: BP 125/66; PULSE 80; RESP 18; TEMP 98.2; O2SAT 97
[2025-02-23] MEDS: FUROSEMIDE 40 MG/4 ML VIAL IV ONE (17:44)
[2025-02-23 20:00] VITALS: PULSE 92; PULSE 93; RESP 19; O2SAT 94
[2025-02-23 21:00] VITALS: BP 124/56; PULSE 92; RESP 19; TEMP 99.6; O2SAT 94
[2025-02-23] MEDS: ATORVASTATIN 20 MG TAB PO SCH (22:09)
[2025-02-23] MEDS: SENNA 8.6 MG TAB PO SCH (22:10)
[2025-02-23 22:13] LABS: Protein, Urine 589.3 mg/dL (1-14)
[2025-02-23] MEDS: MORPHINE SULFATE INJ 2 MG/ml SYRG IV PRN (22:28)
[2025-02-23] MEDS: MELATONIN 5 MG TAB PO SCH (23:16)
[2025-02-24] VITALS (8 sets, daily range): BP systolic 107–128; BP diastolic 55–80; PULSE 80–92; RESP 17–19; TEMP 97–99.7; O2SAT 93–97
[2025-02-24 00:18] LABS: Potassium 5.0 mmol/L (3.5-5.1)
[2025-02-24 00:19] LABS: Anion Gap 11 (5-15); Carbon Dioxide 21 mmol/L (20-31)
[2025-02-24 00:24] LABS: BUN/Creatinine Ratio 11.7 (10.0-20.0)
[2025-02-24 00:30] LABS: Blood Urea Nitrogen 35 mg/dL (9-23); Calcium 8.5 mg/dL (8.7-10.4); Chloride 96 mmol/L (98-107); Glucose 107 mg/dL (74-106); Sodium 128 mmol/L (136-145)
[2025-02-24 06:32] LABS: Hematocrit 32.1 % (36.0-46.0); Hemoglobin 10.9 g/dL (12.2-16.2); Mean Corpuscular Hemoglobin 28.7 pg (28.0-32.0); Mean Corpuscular Volume 85.0 fL (80.0-100.0); Nucleated Red Blood Cells % 0.1 %
[2025-02-24 06:44] LABS: Potassium 4.6 mmol/L (3.5-5.1)
[2025-02-24 06:45] LABS: Anion Gap 11 (5-15); Carbon Dioxide 21 mmol/L (20-31)
[2025-02-24 06:46] LABS: Calcium 8.8 mg/dL (8.7-10.4)
[2025-02-24 06:50] LABS: BUN/Creatinine Ratio 9.1 (10.0-20.0); Glucose 96 mg/dL (74-106)
[2025-02-24 06:56] LABS: Blood Urea Nitrogen 29 mg/dL (9-23); Chloride 97 mmol/L (98-107); Sodium 129 mmol/L (136-145)
[2025-02-24] MEDS: FUROSEMIDE 40 MG/4 ML VIAL IV SCH (08:30)
--- NOTE | 2025-02-24 12:07 | DVHPN2 ---
Progress Note - Dictate Date Seen: Feb 24, 2025 Medical Necessity Reason Pt with a Central, PICC or Fol: No Subjective Patient is clinically stable. Her urine output has slightly improved. However creatinine has not significantly improved. Evaluated by shipping team leader. Her daughter is at bedside and discussed with the her regarding care plan. 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 vital signs Vital Sign Date Time Temp Pulse Resp B/P (MAP) Pulse Ox O2 Delivery O2 Flow Rate FiO2 02/24/25 09:30 98.8 80 19 128/80 (96) 96 98.8 02/24/25 08:00 Room Air* 0 21 Total Intake and Output 02/23/25 02/23/25 02/24/25 15:00 23:00 07:00 Intake Total 1000 ml 250 ml 1550 ml Output Total 100 ml 3 ml Balance 1000 ml 150 ml 1547 ml medications Current Medications Medications Dose Ordered Sig/Samir Route Start Time Stop Time Status Last Admin Dose Admin Docusate Sodium 100 mg BIDPRN PRN PO 02/23/25 01:00 Acetaminophen 650 mg Q6HP PRN PO 02/23/25 01:00 Acetaminophen/ Hydrocodone Bitart 1 tab Q6HP PRN PO 02/23/25 01:00 02/23/25 15:34 1 TAB Ondansetron HCl 4 mg Q4HP PRN IV 02/23/25 01:00 Nitroglycerin 0.4 mg Q5MINP PRN SL 02/23/25 01:00 Morphine Sulfate 2 mg Q30M PRN IV 02/23/25 01:00 Diagnostic Test (Pha) 1 strip ACHS 02/23/25 07:00 02/24/25 11:35 1 STRIP Insulin Human Regular ACHS SC 02/23/25 07:00 02/24/25 11:53 2 UNITS Dextrose 50 ml UD PRN IV 02/23/25 01:00 Clopidogrel Bisulfate 75 mg DAILY PO 02/23/25 10:00 02/24/25 08:30 75 MG Aspirin 81 mg DAILY PO 02/23/25 10:00 02/24/25 08:30 81 MG Atorvastatin Calcium 80 mg HS PO 02/23/25 22:00 02/23/25 22:09 80 MG Sennosides 8.6 mg HS PO 02/23/25 22:00 02/23/25 22:10 8.6 MG Ceftriaxone Sodium 50 ml @ 100 mls/hr DAILY@09 IV 02/24/25 09:00 02/24/25 08:31 100 MLS/HR Furosemide 40 mg DAILY IV 02/24/25 10:00 02/24/25 08:30 40 MG Morphine Sulfate 2 mg Q4HPRN PRN IV 02/23/25 22:00 02/23/25 22:28 2 MG Melatonin 5 mg HS PO 02/23/25 22:00 02/23/25 23:16 5 MG objective Comfortable in bed alert awake oriented x3. Daughter at bedside. Patient complains of generalized myalgia and discomfort. HEENT neck supple no JVD. Heart regular rate and rhythm S1-S2. Lungs fair air movement without rales wheezes. Abdomen soft obese positive bowel sounds. Extremities nonpitting edema upper and lower extremities noted. laboratory and microbiology Laboratory Tests 02/24/25 05:34 Test 02/24/25 05:34 Range/Units Serum Glucose 96 74-106 mg/dL Assessment/Plan CHANA /likely acute tubular necrosis secondary to IV contrast{ patient received two CT scans on February 19 and February 21 with IV contrast in [facility]} Baseline normal renal function GFR 86 creatinine less than one on February 19, 2025 Diabetes type 2 Hypertension Hyponatremia Hyperkalemia, resolved Urinary tract infection History of CAD, status post PCI Heart failure with reduced ejection fraction Mild anemia lymphadenopathy, status post biopsy, reports per daughter shows lymphoma. Continue current IV fluids and Lasix and further management per Nephrology recommendations. Discussed with the daughter regarding biopsy rales of lymphoma and that she should follow up with oncologist upon discharge from this hospital once her kidney functions improved. Given her myalgia complaints I will cut down her Lipitor to 20 mg daily from 80 mg. DVT prophylaxis with the Lovenox. Physical therapy evaluation. Plan discussed with: Patient, Other SIGRID OLIVER MD Feb 24, 2025 12:07
--- NOTE | 2025-02-24 13:33 | DVHPN2 ---
Progress Note Date Seen: Feb 24, 2025 Resident Creating Document: SHANDA TORRES RESDIENT Medical Necessity Reason Pt with a Central, PICC or Fol: No Subjective Review of Systems Patient seen and examined at the bedside. Patient is feeling better since admission. Objective vital signs Vital Sign Date Time Temp Pulse Resp B/P (MAP) Pulse Ox O2 Delivery O2 Flow Rate FiO2 02/24/25 12:53 98.5 82 19 116/58 (77) 96 98.5 02/24/25 08:00 Room Air* 0 21 Total Intake and Output 02/23/25 02/23/25 02/24/25 15:00 23:00 07:00 Intake Total 1000 ml 250 ml 1550 ml Output Total 100 ml 3 ml Balance 1000 ml 150 ml 1547 ml medications Current Medications Medications Dose Ordered Sig/Samir Route Start Time Stop Time Status Last Admin Dose Admin Docusate Sodium 100 mg BIDPRN PRN PO 02/23/25 01:00 Acetaminophen 650 mg Q6HP PRN PO 02/23/25 01:00 Acetaminophen/ Hydrocodone Bitart 1 tab Q6HP PRN PO 02/23/25 01:00 02/23/25 15:34 1 TAB Ondansetron HCl 4 mg Q4HP PRN IV 02/23/25 01:00 Nitroglycerin 0.4 mg Q5MINP PRN SL 02/23/25 01:00 Morphine Sulfate 2 mg Q30M PRN IV 02/23/25 01:00 Diagnostic Test (Pha) 1 strip ACHS 02/23/25 07:00 02/24/25 11:35 1 STRIP Insulin Human Regular ACHS SC 02/23/25 07:00 02/24/25 11:53 2 UNITS Dextrose 50 ml UD PRN IV 02/23/25 01:00 Clopidogrel Bisulfate 75 mg DAILY PO 02/23/25 10:00 02/24/25 08:30 75 MG Aspirin 81 mg DAILY PO 02/23/25 10:00 02/24/25 08:30 81 MG Sennosides 8.6 mg HS PO 02/23/25 22:00 02/23/25 22:10 8.6 MG Ceftriaxone Sodium 50 ml @ 100 mls/hr DAILY@09 IV 02/24/25 09:00 02/24/25 08:31 100 MLS/HR Furosemide 40 mg DAILY IV 02/24/25 10:00 02/24/25 08:30 40 MG Morphine Sulfate 2 mg Q4HPRN PRN IV 02/23/25 22:00 02/23/25 22:28 2 MG Melatonin 5 mg HS PO 02/23/25 22:00 02/23/25 23:16 5 MG Atorvastatin Calcium 20 mg HS PO 02/24/25 22:00 UNV Enoxaparin Sodium 30 mg DAILY SC 02/25/25 10:00 UNV Examination General Appearance: Alert, Oriented X3, Cooperative, No acute distress HEENT: Atraumatic, PERRLA, EOMI, Mucous membrane moist/pink Respiratory: Bilateral lower zone crackles Cardiovascular: Regular rate, Normal S1, Normal S2, No murmurs, no chest wall tenderness Abdominal: Normal bowel sounds, Soft, No tenderness, No hepatospenomegaly, No masses Extremities: Bilateral trace edema Skin: No rashes, No breakdown, No significant lesion Neuro: Normal gait, Normal speech, Strength at 5/5 X4 ext, Normal tone, Sensation intact, Cranial nerves 3-12 NL, Reflexes 2+ Psych/Mental Status: Mental status NL, Mood NL laboratory and microbiology Laboratory Tests 02/24/25 05:34 Test 02/24/25 05:34 Range/Units Serum Glucose 96 74-106 mg/dL Microbiology Date/Time Source Procedure Growth Status 02/22/25 22:18 Urine - Catheterized Urine Culture - Preliminary Resulted 02/22/25 21:52 Blood Blood Culture - Preliminary NO GROWTH AFTER 24 HOURS OF INCUBATION. Resulted Labs and/or images reviewed: Labs reviewed by me, Image(s) reviewed by me Problem List/Assessment/Plan Problem List/Assessment/Plan This is an 84-year-old lady with past medical history of diabetes type 2, hypertension, CVA, coronary artery disease (status post PCI 15 days back at [facility]), congestive heart failure (EF 45%), recent lymph node biopsy, came to the hospital due to fever, chills and generalized weakness. Patient was recently admitted at [facility] due to fever and was found to have UTI. Three days back patient was discharged from [facility] with oral antibiotic, but after 1 day the patient got back fever which prompted this visit. CHANA /likely acute tubular necrosis secondary to IV contrast{ patient received two CT scans on February 19 and February 21 with IV contrast in [facility]} Baseline normal renal function GFR 86 creatinine less than one on February 19, 2025 Diabetes type 2 Hypertension Hyponatremia Hyperkalemia, resolved Urinary tract infection History of CAD, status post PCI Heart failure with reduced ejection fraction Mild anemia lymphadenopathy, status post biopsy, reports not available Plan/recommendation (Dr. Stewart) * IV Lasix 40 mg b.i.d. * Discontinue IV fluid * Repeat urine protein creatinine ratio, check urine and serum immunofixation, electrophoresis and kappa and lambda light chain * Avoid nephrotoxic medication * Strict I&Os * We will follow up with the patient Thank you for giving us the opportunity to the care of your patient. Please call back if you have any questions/concerns. Addendum Patient seen and examined, plan discussed with resident. Agree with above, we will follow closely Nephrotic range proteinuria repeat Urine analysis PCR Monoclonal gammopathy workup as ordered Plan discussed with: Patient, Daughter, Other (RN) SHANDA TORRES Feb 24, 2025 13:33 KASHMIR STEWART MD Feb 24, 2025 17:30
[2025-02-24] MEDS ORDERED: METO25TA93 PO (15:17)
[2025-02-24] MEDS ORDERED: CEFD300C2 PO (15:17)
[2025-02-24] MEDS ORDERED: CLOP75TA70 PO (15:18)
[2025-02-24] MEDS ORDERED: HYDR-4902 PO (15:19)
[2025-02-24] MEDS ORDERED: ATOR-47 PO (15:20)
[2025-02-24] MEDS ORDERED: GABA-339 PO (15:20)
[2025-02-24] MEDS ORDERED: FURO40TA4 PO (15:21)
[2025-02-24] MEDS ORDERED: ASPI325T6 PO (15:21)
[2025-02-24] MEDS ORDERED: EMPA1TAB PO (15:22)
[2025-02-24] MEDS ORDERED: POTA-36 PO (15:23)
--- NOTE | 2025-02-24 21:42 | DVHINCON2 ---
Date of service: Feb 24, 2025 Referring Physician Transfer of care due to insurance. Reason for Consultation Medical management. History of Present Illness Alesia Flores is a 84-year-old F with a Past Medical History pertinent for DM, Hypertension, CVA, AL s/p PCI with stent to LAD, CHF LVEF 45% 02/03/25 and recent lymph node biopsy pending results for lymphoma evaluation who presented to the hospital with complaints of generalized weakness, back pain and fever x 3 days. Patient was recently discharged from [facility] where she was admitted for UTI sepsis. While in ED, patient was found febrile 101.3. Initial CBC unremarkable, CMP remarkable for low Na 129, K5.2, Creatinine 2.73 with BUN 24, GFR 17. Lactic acid 1.8. Renal US reported trace right perinephric fluid; no hydronephrosis. CT Abdomen Pelvis without contrast reported no acute abnormalities; enlarged lower abdominal and left iliac chain lymph nodes; 2.7 cm right ovarian cyst; cholelithiasis. Allergies: Coded Allergies: NO KNOWN ALLERGIES (Unverified , 02/22/25) Home Meds Reported Medications Potassium Chloride (POTASSIUM CHLORIDE CR) 10 Meq Tb, 8 MEQ PO BID, TAB 02/24/25 Empagliflozin (Jardiance) 10 Mg Tab, 10 MG PO, TAB 02/24/25 Aspirin (Aspirin) 325 Mg Tab, 81 MG PO DAILY for 30 Days, MG 02/24/25 Furosemide (Furosemide) 40 Mg Tab, 40 MG PO DAILY for 30 Days 02/24/25 Gabapentin (Gabapentin) 600 Mg Tab, 600 MG PO TID for 30 Days, MG 02/24/25 Atorvastatin Calcium (ATORVASTATIN CALCIUM) 80 Mg Tab, 1 TAB PO HS, #30 TAB 5 Refills 02/24/25 Hydrocodone-Acetaminophen (Hydrocodone Bitartrate/AC 5-325 mg) 1 Tab Tab, 1 TAB PO QID, TAB 02/24/25 Clopidogrel Bisulfate (CLOPIDOGREL) 75 Mg Tab, 75 MG PO DAILY for 30 Days, MG 02/24/25 Metoprolol Succinate (Metoprolol Succinate Er) 25 Mg Tab, 25 MG PO DAILY for 30 Days, MG 02/24/25 Cefdinir (Cefdinir) 300 Mg Cap, 1 CAP PO BID, #14 CAP 02/24/25 Zolpidem Tartrate (Zolpidem Tartrate) 10 Mg Tab, 1 TAB PO QPM, #30 TAB 2 Refills 02/23/25 Current Medications Current Medications Medications (Trade) Dose Ordered Sig/Samir Route PRN Reason Start Time Stop Time Status Last Admin Atorvastatin Calcium (Lipitor) 80 mg HS PO 02/23/25 22:00 02/24/25 12:04 DC 02/23/25 22:09 Sennosides (Senokot Tablet) 8.6 mg HS PO 02/23/25 22:00 02/23/25 22:10 Ceftriaxone Sodium 50 ml @ 100 mls/hr DAILY@09 IV 02/24/25 09:00 02/24/25 08:31 Furosemide (Lasix Injection) 40 mg DAILY IV 02/24/25 10:00 02/24/25 08:30 Morphine Sulfate 2 mg Q4HPRN PRN IV SEVERE PAIN (7-10 PAIN SCALE) 02/23/25 22:00 02/23/25 22:28 Melatonin (Melatonin) 5 mg HS PO 02/23/25 22:00 02/23/25 23:16 Atorvastatin Calcium (Lipitor) 20 mg HS PO 02/24/25 22:00 Enoxaparin Sodium (Lovenox) 30 mg DAILY SC 02/25/25 10:00 Review of Systems Constitutional: Yes: Fever, Chills, Weakness, Malaise; No: Sweats, Other Eyes: No: Pain, Vision change, Conjunctivae inflammation, Eyelid inflammation, Other, Redness ENT: No: Ear pain, Ear discharge, Nose pain, Nose discharge, Nose congestion, Mouth pain, Mouth swelling, Throat pain, Throat swelling, Other Respiratory: No: Cough, Dry, Shortness of breath, SOB with excertion, Wheezing, Hemoptysis, Pleuritic Pain, Sputum, Wheezing, Other Cardiovascular: No: Chest Pain, Palpitations, Orthopnea, Paroxysmal Noc. Dyspnea, Edema, Lt Headedness, Other Gastrointestinal: No: Nausea, Vomiting, Abdominal Pain, Diarrhea, Constipation, Melena, Hematochezia, Other Genitourinary: No Dysuria, No Frequency, No Incontinence, No Hematuria, No Retention, No Other Musculoskeletal: back pain; No: other, neck pain, shoulder pain, arm pain, hand pain, leg pain, foot pain Skin: No: Rash, Lesions, Jaundice, Bruising, Other Neurological: No: Weakness, Numbness, Incoordination, Change in speech, Confusion, Seizures, Other Vital Signs Vital Signs Date Time Temp Pulse Resp B/P (MAP) Pulse Ox O2 Delivery O2 Flow Rate FiO2 02/24/25 16:30 98.2 87 19 119/59 (79) 97 98.2 02/24/25 08:00 Room Air* 0 21 Physical Exam Vitals and nursing notes reviewed. General Appearance: Cooperative, moderate distress HEENT: Atraumatic, PERRLA Respiratory: Clear to auscultation, Normal air movement Cardiovascular: Regular rate, Normal S1, Normal S2 Abdominal: Normal bowel sounds, Soft, No tenderness Extremities: Normal pulses, Other (BLE edema 1+, BUE edema 1+) Skin: Warm and dry. No rashes Neuro: Alert, Oriented X3, Normal speech, Strength at 5/5 X4 ext Psych/Mental Status: Mental status NL, Mood NL Labs/Diagnostic Data Labs Test 02/24/25 21:03 02/24/25 05:34 02/23/25 15:08 02/23/25 11:46 Range/Units POC Glucose 158 H 70-106 mg/dl White Blood Count 8.4 4.4-10.8 10^3/uL Red Blood Count 3.78 L 4.0-5.20 10^6/uL Hemoglobin 10.9 L 12.2-16.2 g/dL Hematocrit 32.1 L 36.0-46.0 % Mean Corpuscular Volume 85.0 80.0-100.0 fL Mean Corpuscular Hemoglobin 28.7 28.0-32.0 pg Mean Corpuscular Hemoglobin Concent 33.8 32.0-36.0 g/dL Red Cell Distribution Width 13.6 11.8-14.3 % Platelet Count 213 140-450 10^3/uL Mean Platelet Volume 8.2 6.9-10.8 fL Neutrophils (%) (Auto) 50.5 37.0-80.0 % Lymphocytes (%) (Auto) 24.3 10.0-50.0 % Monocytes (%) (Auto) 14.0 H 0.0-12.0 % Eosinophils (%) (Auto) 10.1 H 0.0-7.0 % Basophils (%) (Auto) 1.1 0.0-2.0 % Neutrophils # (Auto) 4.2 1.6-8.6 10 ^3/uL Lymphocytes # (Auto) 2.0 0.4-5.4 10 ^3/uL Monocytes # (Auto) 1.2 0-1.3 10 ^3/uL Eosinophils # (Auto) 0.8 0-0.8 10 ^3/uL Basophils # (Auto) 0.1 0-0.2 10 ^3/uL Nucleated Red Blood Cells 0.1 % Sodium Level 129 L 136-145 mmol/L Potassium Level 4.6 3.5-5.1 mmol/L Chloride Level 97 L 98-107 mmol/L Carbon Dioxide Level 21 20-31 mmol/L Anion Gap 11 5-15 Blood Urea Nitrogen 29 H 9-23 mg/dL Creatinine 3.19 H 0.550-1.02 mg/dL Glomerular Filtration Rate Calc 14 >90 mL/min BUN/Creatinine Ratio 9.1 L 10.0-20.0 Serum Glucose 96 74-106 mg/dL Calcium Level 8.8 8.7-10.4 mg/dL Vitamin D 25-Hydroxy 34.6 30.0-100 ng/mL Influenza Type A Antigen Negative Negative Influenza Type B Antigen Negative Negative SARS-CoV-2 Antigen (Rapid) Negative NEGATIVE Test 02/23/25 06:10 02/22/25 22:23 02/22/25 21:50 02/22/25 21:15 Range/Units Uric Acid 7.3 3.1-7.8 mg/dL Phosphorus Level 5.7 H 2.4-5.1 mg/dL Magnesium Level 1.7 1.6-2.6 mg/dL Lactate Dehydrogenase 240 120-246 U/L Parathyroid Hormone (Intact) 7.8 L 18.4-80.1 pg/mL Urine Color Dark-yellow Yellow Urine Clarity Turbid H Clear Urine pH 5.0 5.0-9.0 Urine Specific [place] 1.048 H 1.001-1.035 Urine Protein Trace H Negative Urine Ketones Trace Negative Urine Blood Negative Negative /uL Urine Nitrite Negative Negative Urine Bilirubin Negative Negative Urine Urobilinogen Normal Negative mg/dL Urine Leukocyte Esterase Negative Negative /uL Urine RBC 5 0 - 4 /hpf Urine Microscopic WBC 5 0-5 /HPF Urine Squamous Epithelial Cells Few <5 /hpf Urine Bacteria Few H None Seen /hpf Urine Mucus Few None Seen Urine Glucose 2+ H Normal mg/dL Lactic Acid Level 1.8 0.4-2.0 mmol/L Total Bilirubin 0.4 0.2-1.0 mg/dL Aspartate Amino Transferase (AST) 24 13-40 U/L Alanine Aminotransferase (ALT) < 9 7-40 U/L Alkaline Phosphatase 69 46-116 U/L Total Protein 7.0 5.7-8.2 g/dL Albumin 3.4 3.2-4.8 g/dL Urine Creatinine 40.20 30.0-125.0 mg/dL Urine Protein/Creatinine Ratio 14.66 Urine Sodium 167 40-220 mmol/L Urine Total Protein 589.3 H 1-14 mg/dL Microbiology Date/Time Source Procedure Growth Status 02/24/25 05:50 Nose MRSA Screen - Final Complete 02/22/25 22:18 Urine - Catheterized Urine Culture - Preliminary Resulted 02/22/25 21:52 Blood Blood Culture - Preliminary NO GROWTH AFTER 24 HOURS OF INCUBATION. Resulted Assessment Acute kidney injury Hyperkalemia Urinary tract infection DM with hyperglycemia Enlarged lymph nodes s/p lymph node biopsy CAD s/p PCI to LAD 02/04/25 History of Congestive Heart Failure History of CVA Plan/Recommendation Continue current supportive medical care. Nephrology consulted. Daily lab monitoring to include renal function and electrolytes. Electrolyte replacement prn. IVFs stopped. Started on diuretics with Lasix 40 mg IV daily. Strict Intake/Output monitoring w/solano. IV antibiotics with Ceftriaxone. Regular insulin per protocol. Accu-checks. Home medications resumed. DVT prophylaxis: Enoxaparin. Additional plan as per the hospital course. Plan discussed with: Patient, Other (RN) CHRISTINA GIBBS DO Feb 24, 2025 21:42
[2025-02-24] MEDS: ATORVASTATIN 20 MG TAB PO SCH (22:13)
[2025-02-25] VITALS (8 sets, daily range): BP systolic 107–140; BP diastolic 51–84; PULSE 67–97; RESP 17–19; TEMP 98.2–99.2; O2SAT 93–99
[2025-02-25 06:37] LABS: Hematocrit 31.5 % (36.0-46.0); Hemoglobin 10.5 g/dL (12.2-16.2); Mean Corpuscular Hemoglobin 28.1 pg (28.0-32.0); Mean Corpuscular Volume 84.2 fL (80.0-100.0); Nucleated Red Blood Cells % 0.1 %
[2025-02-25 06:57] LABS: Potassium 4.6 mmol/L (3.5-5.1)
[2025-02-25 06:58] LABS: Anion Gap 10 (5-15); Calcium 8.9 mg/dL (8.7-10.4); Carbon Dioxide 20 mmol/L (20-31)
[2025-02-25 07:03] LABS: Glucose 96 mg/dL (74-106)
[2025-02-25 07:04] LABS: BUN/Creatinine Ratio 9.1 (10.0-20.0)
[2025-02-25 07:06] LABS: Blood Urea Nitrogen 29 mg/dL (9-23); Chloride 96 mmol/L (98-107); Sodium 126 mmol/L (136-145)
[2025-02-25] MEDS: ENOXAPARIN SOD 30 MG/0.3 ML SYRINGE SC SCH (09:39)
[2025-02-25] MEDS: DOCUSATE SOD 100 MG CAP PO ONE (15:38)
--- NOTE | 2025-02-25 18:45 | DVHINCON2 ---
Date of service: Feb 25, 2025 Referring Physician SIGRID OLIVER MD Reason for Consultation UTI History of Present Illness 84-year-old female with past medical history of DM, hypertension, CVA, [place] s/p PCI with stent to LAD, CHF LVEF 45% 02/03/25, recent lymph node biopsy with pending pathology for lymphoma evaluation. She presented with complaints of generalized weakness. Patient was recently discharged from [facility], where she was admitted for UTI sepsis. Patient reported persistent back pain and fevers for the past three days. On arrival to the emergency department, She was febrile 101.3, BP 125/59, heart rate 109. During the emergency department evaluation CBC is unremarkable, CMP Na 129, K5.2, BUN 24, creatinine 2.73, GFR 17. LA 1.8. On February 19, 2025 GFR 88 with normal BUN creatinine. Patient denies confusion, shortness of breath, chest pain, palpitations, nausea and vomiting. 02/24 - Urine out put has slightly improved, however creatinine has not significantly improved. 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 Endocrine: Diabetes Social History Smoke: No ALCOHOL: heavy Drugs: None Lives: with Family Allergies: Coded Allergies: NO KNOWN ALLERGIES (Unverified , 02/22/25) Home Meds Reported Medications Potassium Chloride (POTASSIUM CHLORIDE CR) 10 Meq Tb, 8 MEQ PO BID, TAB 02/24/25 Empagliflozin (Jardiance) 10 Mg Tab, 10 MG PO, TAB 02/24/25 Aspirin (Aspirin) 325 Mg Tab, 81 MG PO DAILY for 30 Days, MG 02/24/25 Furosemide (Furosemide) 40 Mg Tab, 40 MG PO DAILY for 30 Days 02/24/25 Gabapentin (Gabapentin) 600 Mg Tab, 600 MG PO TID for 30 Days, MG 02/24/25 Atorvastatin Calcium (ATORVASTATIN CALCIUM) 80 Mg Tab, 1 TAB PO HS, #30 TAB 5 Refills 02/24/25 Hydrocodone-Acetaminophen (Hydrocodone Bitartrate/AC 5-325 mg) 1 Tab Tab, 1 TAB PO QID, TAB 02/24/25 Clopidogrel Bisulfate (CLOPIDOGREL) 75 Mg Tab, 75 MG PO DAILY for 30 Days, MG 02/24/25 Metoprolol Succinate (Metoprolol Succinate Er) 25 Mg Tab, 25 MG PO DAILY for 30 Days, MG 02/24/25 Cefdinir (Cefdinir) 300 Mg Cap, 1 CAP PO BID, #14 CAP 02/24/25 Zolpidem Tartrate (Zolpidem Tartrate) 10 Mg Tab, 1 TAB PO QPM, #30 TAB 2 Refills 02/23/25 Current Medications Current Medications Medications (Trade) Dose Ordered Sig/Samir Route PRN Reason Start Time Stop Time Status Last Admin Atorvastatin Calcium (Lipitor) 20 mg HS PO 02/24/25 22:00 02/24/25 22:13 Enoxaparin Sodium (Lovenox) 30 mg DAILY SC 02/25/25 10:00 02/25/25 09:39 Docusate Sodium (Colace Capsule) 100 mg BID PO 02/25/25 22:00 Review of Systems General: Positive for Fever, Malaise, no chills, night sweats or weight loss HEENT: No Sinus pain, headache, vision changes or sore throat Respiratory: No Cough, dyspnea, sputum production Cardiovascular: No Chest pain, palpitations or leg edema Gastrointestinal: No Nausea, vomiting, diarrhea, abdominal pain Genitourinary: No Dysuria, urinary frequency, hematuria, pelvic pain Skin: No Rashes, ulcers, abscesses, redness or swelling Musculoskeletal:Positive for Back pain, No Joint pain, muscle pain or swelling Neurologic: No Altered mental status, headaches or focal neurological deficits Psychiatric: No Anxiety, depression or confusion Vital Signs Vital Signs Date Time Temp Pulse Resp B/P (MAP) Pulse Ox O2 Delivery O2 Flow Rate FiO2 02/25/25 17:00 99.2 91 17 107/52 (70) 96 99.2 02/25/25 08:00 Room Air* 0 21 Physical Exam General:Patient appears alert, comfortable and well-appearing. HEENT:Normocephalic, atraumatic, Sclera anicteric, conjunctiva clear,No nasal discharge or congestion Mucous membranes moist, no tonsillar erythema or exudates. Neck: No cervical lymphadenopathy or masses.No neck stiffness. Lungs: Breath sounds clear bilaterally, no wheezes, rales, or rhonchi. No use of accessory muscles or respiratory distress. Cardiovascular: Regular rate and rhythm, no murmurs, rubs, or gallops. Abdomen: Soft, non-tender, non-distended.Bowel sounds present in all quadrants. No hepatosplenomegaly or masses. Skin: No rash, petechiae, or ecchymosis. Extremities: No edema, cyanosis, or clubbing. No tenderness to palpation, erythema, or swelling in joints. No signs of deep vein thrombosis (DVT). Neurologic: Patient is alert and oriented to person, place, and time. Cranial nerves II-XII intact. Motor strength 5/5 bilaterally in all extremities Labs/Diagnostic Data Labs Test 02/25/25 17:30 02/25/25 05:48 02/23/25 15:08 02/23/25 11:46 Range/Units POC Glucose 150 H 70-106 mg/dl White Blood Count 6.5 4.4-10.8 10^3/uL Red Blood Count 3.74 L 4.0-5.20 10^6/uL Hemoglobin 10.5 L 12.2-16.2 g/dL Hematocrit 31.5 L 36.0-46.0 % Mean Corpuscular Volume 84.2 80.0-100.0 fL Mean Corpuscular Hemoglobin 28.1 28.0-32.0 pg Mean Corpuscular Hemoglobin Concent 33.3 32.0-36.0 g/dL Red Cell Distribution Width 13.8 11.8-14.3 % Platelet Count 221 140-450 10^3/uL Mean Platelet Volume 7.9 6.9-10.8 fL Neutrophils (%) (Auto) 50.5 37.0-80.0 % Lymphocytes (%) (Auto) 26.5 10.0-50.0 % Monocytes (%) (Auto) 12.7 H 0.0-12.0 % Eosinophils (%) (Auto) 9.6 H 0.0-7.0 % Basophils (%) (Auto) 0.7 0.0-2.0 % Neutrophils # (Auto) 3.3 1.6-8.6 10 ^3/uL Lymphocytes # (Auto) 1.7 0.4-5.4 10 ^3/uL Monocytes # (Auto) 0.8 0-1.3 10 ^3/uL Eosinophils # (Auto) 0.6 0-0.8 10 ^3/uL Basophils # (Auto) 0 0-0.2 10 ^3/uL Nucleated Red Blood Cells 0.1 % Sodium Level 126 L 136-145 mmol/L Potassium Level 4.6 3.5-5.1 mmol/L Chloride Level 96 L 98-107 mmol/L Carbon Dioxide Level 20 20-31 mmol/L Anion Gap 10 5-15 Blood Urea Nitrogen 29 H 9-23 mg/dL Creatinine 3.20 H 0.550-1.02 mg/dL Glomerular Filtration Rate Calc 14 >90 mL/min BUN/Creatinine Ratio 9.1 L 10.0-20.0 Serum Glucose 96 74-106 mg/dL Calcium Level 8.9 8.7-10.4 mg/dL Vitamin D 25-Hydroxy 34.6 30.0-100 ng/mL Influenza Type A Antigen Negative Negative Influenza Type B Antigen Negative Negative SARS-CoV-2 Antigen (Rapid) Negative NEGATIVE Test 02/23/25 06:10 02/22/25 22:23 02/22/25 21:50 02/22/25 21:15 Range/Units Uric Acid 7.3 3.1-7.8 mg/dL Phosphorus Level 5.7 H 2.4-5.1 mg/dL Magnesium Level 1.7 1.6-2.6 mg/dL Lactate Dehydrogenase 240 120-246 U/L Parathyroid Hormone (Intact) 7.8 L 18.4-80.1 pg/mL Urine Color Dark-yellow Yellow Urine Clarity Turbid H Clear Urine pH 5.0 5.0-9.0 Urine Specific [place] 1.048 H 1.001-1.035 Urine Protein Trace H Negative Urine Ketones Trace Negative Urine Blood Negative Negative /uL Urine Nitrite Negative Negative Urine Bilirubin Negative Negative Urine Urobilinogen Normal Negative mg/dL Urine Leukocyte Esterase Negative Negative /uL Urine RBC 5 0 - 4 /hpf Urine Microscopic WBC 5 0-5 /HPF Urine Squamous Epithelial Cells Few <5 /hpf Urine Bacteria Few H None Seen /hpf Urine Mucus Few None Seen Urine Glucose 2+ H Normal mg/dL Lactic Acid Level 1.8 0.4-2.0 mmol/L Total Bilirubin 0.4 0.2-1.0 mg/dL Aspartate Amino Transferase (AST) 24 13-40 U/L Alanine Aminotransferase (ALT) < 9 7-40 U/L Alkaline Phosphatase 69 46-116 U/L Total Protein 7.0 5.7-8.2 g/dL Albumin 3.4 3.2-4.8 g/dL Urine Creatinine 40.20 30.0-125.0 mg/dL Urine Protein/Creatinine Ratio 14.66 Urine Sodium 167 40-220 mmol/L Urine Total Protein 589.3 H 1-14 mg/dL Microbiology Date/Time Source Procedure Growth Status 02/24/25 05:50 Nose MRSA Screen - Final Complete 02/22/25 22:18 Urine - Catheterized Urine Culture - Final Complete 02/22/25 21:52 Blood Blood Culture - Preliminary NO GROWTH AFTER 48 HOURS OF INCUBATION. Resulted Assessment Urinary tract infection Enlarged lymph nodes s/p lymph node biopsy Acute kidney injury Hyperkalemia DM with hyperglycemia CAD s/p PCI to LAD 02/04/25 CHF estimated LVEF 45% Hx CVA Plan/Recommendation Started on IV Ceftriaxone Blood cultures preliminary showed no growth Urine cultures came back negative Chest x ray revealed Pulmonary vascular congestion Renal US revealed trace right perinephric fluid; no hydronephrosis. CT Abdomen Pelvis without contrast revealed no acute abnormalities; enlarged lower abdominal and left iliac chain lymph nodes; 2.7 cm right ovarian cyst; cholelithiasis. Total time spent 80 Minutes. Thank you for the consult FILIPPO HAMMOND MD Feb 25, 2025 18:45
--- NOTE | 2025-02-25 20:12 | DVHDS2 ---
Discharge Summary Date of Admission Feb 23, 2025 at 00:51 Date of Discharge: Feb 25, 2025 Admitting Diagnosis Acute kidney injury Labs/Diagnostic Data: Laboratory Results Test 02/25/25 17:30 02/25/25 05:48 02/23/25 15:08 02/23/25 11:46 POC Glucose 150 mg/dl (70-106) White Blood Count 6.5 10^3/uL (4.4-10.8) Red Blood Count 3.74 10^6/uL (4.0-5.20) Hemoglobin 10.5 g/dL (12.2-16.2) Hematocrit 31.5 % (36.0-46.0) Mean Corpuscular Volume 84.2 fL (80.0-100.0) Mean Corpuscular Hemoglobin 28.1 pg (28.0-32.0) Mean Corpuscular Hemoglobin Concent 33.3 g/dL (32.0-36.0) Red Cell Distribution Width 13.8 % (11.8-14.3) Platelet Count 221 10^3/uL (140-450) Mean Platelet Volume 7.9 fL (6.9-10.8) Neutrophils (%) (Auto) 50.5 % (37.0-80.0) Lymphocytes (%) (Auto) 26.5 % (10.0-50.0) Monocytes (%) (Auto) 12.7 % (0.0-12.0) Eosinophils (%) (Auto) 9.6 % (0.0-7.0) Basophils (%) (Auto) 0.7 % (0.0-2.0) Neutrophils # (Auto) 3.3 10 ^3/uL (1.6-8.6) Lymphocytes # (Auto) 1.7 10 ^3/uL (0.4-5.4) Monocytes # (Auto) 0.8 10 ^3/uL (0-1.3) Eosinophils # (Auto) 0.6 10 ^3/uL (0-0.8) Basophils # (Auto) 0 10 ^3/uL (0-0.2) Nucleated Red Blood Cells 0.1 % Sodium Level 126 mmol/L (136-145) Potassium Level 4.6 mmol/L (3.5-5.1) Chloride Level 96 mmol/L (98-107) Carbon Dioxide Level 20 mmol/L (20-31) Anion Gap 10 (5-15) Blood Urea Nitrogen 29 mg/dL (9-23) Creatinine 3.20 mg/dL (0.550-1.02) Glomerular Filtration Rate Calc 14 mL/min (>90) BUN/Creatinine Ratio 9.1 (10.0-20.0) Serum Glucose 96 mg/dL (74-106) Calcium Level 8.9 mg/dL (8.7-10.4) Vitamin D 25-Hydroxy 34.6 ng/mL (30.0-100) Influenza Type A Antigen Negative (Negative) Influenza Type B Antigen Negative (Negative) SARS-CoV-2 Antigen (Rapid) Negative (NEGATIVE) Test 02/23/25 06:10 02/22/25 22:23 02/22/25 21:50 02/22/25 21:15 Uric Acid 7.3 mg/dL (3.1-7.8) Phosphorus Level 5.7 mg/dL (2.4-5.1) Magnesium Level 1.7 mg/dL (1.6-2.6) Lactate Dehydrogenase 240 U/L (120-246) Parathyroid Hormone (Intact) 7.8 pg/mL (18.4-80.1) Urine Color Dark-yellow (Yellow) Urine Clarity Turbid (Clear) Urine pH 5.0 (5.0-9.0) Urine Specific [place] 1.048 (1.001-1.035) Urine Protein Trace (Negative) Urine Ketones Trace (Negative) Urine Blood Negative /uL (Negative) Urine Nitrite Negative (Negative) Urine Bilirubin Negative (Negative) Urine Urobilinogen Normal mg/dL (Negative) Urine Leukocyte Esterase Negative /uL (Negative) Urine RBC 5 /hpf (0 - 4) Urine Microscopic WBC 5 /HPF (0-5) Urine Squamous Epithelial Cells Few /hpf (<5) Urine Bacteria Few /hpf (None Seen) Urine Mucus Few (None Seen) Urine Glucose 2+ mg/dL (Normal) Lactic Acid Level 1.8 mmol/L (0.4-2.0) Total Bilirubin 0.4 mg/dL (0.2-1.0) Aspartate Amino Transferase (AST) 24 U/L (13-40) Alanine Aminotransferase (ALT) < 9 U/L (7-40) Alkaline Phosphatase 69 U/L (46-116) Total Protein 7.0 g/dL (5.7-8.2) Albumin 3.4 g/dL (3.2-4.8) Urine Creatinine 40.20 mg/dL (30.0-125.0) Urine Protein/Creatinine Ratio 14.66 Urine Sodium 167 mmol/L (40-220) Urine Total Protein 589.3 mg/dL (1-14) Other Laboratory Tests 02/25/25 05:48 Brief Hx & Hospital Course: Alesia Flores is a 84-year-old F with a Past Medical History pertinent for DM, Hypertension, CVA, [place] s/p PCI with stent to LAD, CHF LVEF 45% 02/03/25 and recent lymph node biopsy pending results for lymphoma evaluation who presented to the hospital with complaints of generalized weakness, back pain and fever x 3 days. Patient was recently discharged from [facility] where she was admitted for UTI sepsis. During ED course, labs were remarkable for low Na 129, K 5.2, Creatinine 2.73 with BUN 24, GFR 17. Lactic acid 1.8. Renal US reported trace right perinephric fluid; no hydronephrosis. CT Abdomen Pelvis without contrast reported no acute abnormalities; enlarged lower abdominal and left iliac chain lymph nodes; 2.7 cm right ovarian cyst; cholelithiasis. Patient was subsequently admitted for further observation. Nephrology services initially consulted for [facility] management. Patient continued supportive treatment to include IV antibiotics with Ceftriaxone. Prelim blood cultures are negative so far. Urine cultures also resulted negative. Patient was awaiting further evaluation, however, decided to leave AMA because she did not like the care she was receiving from nursing staff. Patient reported wanting to leave and go to [place]. I had advised patient's daughter that patient needs to stay for managing her renal failure. Patient is discharged AMA. Condition at Discharge: Undetermined Final Diagnosis/Problems List Acute kidney injury Hyperkalemia Urinary tract infection DM with hyperglycemia Enlarged lymph nodes s/p lymph node biopsy CAD s/p PCI to LAD 02/04/25 History of Congestive Heart Failure History of CVA Discharge Disposition: AMA SNF Discharge Will this Physician continue t: No Discharge Instruct/Medications Scheduled Aspirin (Aspirin), 81 MG PO DAILY, (Reported) Atorvastatin Calcium (Atorvastatin Calcium), 1 TAB PO HS, (Reported) Cefdinir (Cefdinir), 1 CAP PO BID, (Reported) Clopidogrel Bisulfate (Clopidogrel), 75 MG PO DAILY, (Reported) Furosemide (Furosemide), 40 MG PO DAILY, (Reported) Gabapentin (Gabapentin), 600 MG PO TID, (Reported) Hydrocodone-Acetaminophen (Hydrocodone Bitartrate/AC 5-325 mg), 1 TAB PO QID, (Reported) Metoprolol Succinate (Metoprolol Succinate Er), 25 MG PO DAILY, (Reported) Potassium Chloride (Potassium Chloride Cr), 8 MEQ PO BID, (Reported) Zolpidem Tartrate (Zolpidem Tartrate), 1 TAB PO QPM, (Reported) Miscellaneous Medications Empagliflozin (Jardiance), 10 MG PO, (Reported) Discharge Statement: "Patient was advised to return to the ER or call 911 if any headaches, dizziness, shortness of breath, chest pain, abdominal pain, bleeding, fevers, or worsening of medical condition. Patient was counseled about treatment plan, medications, possible side effects, patientverbalized understanding. All questions were answered to the best of my ability. This discharge took greater then 30 minutes in planning, reviewing documentation, counseling the patient, and discussing with other team members." ASSESSMENT ASSESSMENT Assessment CHRISTINA GIBBS DO Feb 25, 2025 20:12
[2025-02-25] MEDS: DOCUSATE SOD 100 MG CAP PO SCH (22:04)
[2025-02-26] VITALS (7 sets, daily range): BP systolic 112–124; BP diastolic 56–65; PULSE 92–100; RESP 16–19; TEMP 37.1; O2SAT 95–98
[2025-02-26 07:18] LABS: Hematocrit 30.6 % (36.0-46.0); Hemoglobin 10.4 g/dL (12.2-16.2); Mean Corpuscular Hemoglobin 28.3 pg (28.0-32.0); Mean Corpuscular Volume 83.8 fL (80.0-100.0); Nucleated Red Blood Cells % 0.1 %
[2025-02-26 07:28] LABS: Anion Gap 10 (5-15); Carbon Dioxide 22 mmol/L (20-31); Potassium 4.4 mmol/L (3.5-5.1)
[2025-02-26 07:29] LABS: Calcium 9.4 mg/dL (8.7-10.4)
[2025-02-26 07:33] LABS: Glucose 90 mg/dL (74-106)
[2025-02-26 07:34] LABS: BUN/Creatinine Ratio 10.3 (10.0-20.0)
[2025-02-26 07:35] LABS: Blood Urea Nitrogen 27 mg/dL (9-23); Chloride 97 mmol/L (98-107); Sodium 129 mmol/L (136-145)
--- NOTE | 2025-02-26 08:44 | DVHPN2 ---
Progress Note - Dictate Date Seen: Feb 26, 2025 Medical Necessity Reason Pt with a Central, PICC or Fol: No Subjective No new complaints. vital signs Vital Sign Date Time Temp Pulse Resp B/P (MAP) Pulse Ox O2 Delivery O2 Flow Rate FiO2 02/26/25 05:00 98.4 92 18 112/58 (76) 97 98.4 02/25/25 20:00 Room Air* 0 21 Total Intake and Output 02/25/25 02/25/25 02/26/25 15:00 23:00 07:00 Intake Total 1200 ml Output Total 1200 ml Balance -1200 ml 1200 ml medications Current Medications Medications Dose Ordered Sig/Samir Route Start Time Stop Time Status Last Admin Dose Admin Acetaminophen 650 mg Q6HP PRN PO 02/23/25 01:00 Acetaminophen/ Hydrocodone Bitart 1 tab Q6HP PRN PO 02/23/25 01:00 02/26/25 01:25 1 TAB Ondansetron HCl 4 mg Q4HP PRN IV 02/23/25 01:00 Nitroglycerin 0.4 mg Q5MINP PRN SL 02/23/25 01:00 Morphine Sulfate 2 mg Q30M PRN IV 02/23/25 01:00 Diagnostic Test (Pha) 1 strip ACHS 02/23/25 07:00 02/25/25 22:10 1 STRIP Insulin Human Regular ACHS SC 02/23/25 07:00 02/25/25 17:57 2 UNITS Dextrose 50 ml UD PRN IV 02/23/25 01:00 Clopidogrel Bisulfate 75 mg DAILY PO 02/23/25 10:00 02/25/25 09:39 75 MG Aspirin 81 mg DAILY PO 02/23/25 10:00 02/25/25 09:40 81 MG Sennosides 8.6 mg HS PO 02/23/25 22:00 02/25/25 22:04 8.6 MG Morphine Sulfate 2 mg Q4HPRN PRN IV 02/23/25 22:00 02/25/25 20:17 2 MG Melatonin 5 mg HS PO 02/23/25 22:00 02/25/25 22:04 5 MG Atorvastatin Calcium 20 mg HS PO 02/24/25 22:00 Hold 02/25/25 22:04 20 MG Enoxaparin Sodium 30 mg DAILY SC 02/25/25 10:00 02/25/25 09:39 30 MG Docusate Sodium 100 mg BID PO 02/25/25 22:00 02/25/25 22:04 100 MG Atorvastatin Calcium 80 mg HS PO 02/26/25 22:00 objective General:Patient appears alert, comfortable and well-appearing. HEENT:Normocephalic, atraumatic, Sclera anicteric, conjunctiva clear,No nasal discharge or congestion Mucous membranes moist, no tonsillar erythema or exudates. Neck: No cervical lymphadenopathy or masses.No neck stiffness. Lungs: Breath sounds clear bilaterally, no wheezes, rales, or rhonchi. No use of accessory muscles or respiratory distress. Cardiovascular: Regular rate and rhythm, no murmurs, rubs, or gallops. Abdomen: Soft, non-tender, non-distended.Bowel sounds present in all quadrants. No hepatosplenomegaly or masses. Skin: No rash, petechiae, or ecchymosis. Extremities: No edema, cyanosis, or clubbing. No tenderness to palpation, erythema, or swelling in joints. No signs of deep vein thrombosis (DVT). Neurologic: Patient is alert and oriented to person, place, and time. Cranial nerves II-XII intact. Motor strength 5/5 bilaterally in all extremities laboratory and microbiology Laboratory Tests 02/26/25 06:08 Test 02/26/25 06:08 Range/Units Serum Glucose 90 74-106 mg/dL Assessment/Plan Assessment and plan: Patient is a 84-year-old female presented with Urinary tract infection Enlarged lymph nodes s/p lymph node biopsy Acute kidney injury Hyperkalemia DM with hyperglycemia CAD s/p PCI to LAD 02/04/25 CHF estimated LVEF 45% Hx CVA Plan/Recommendation Started on IV Ceftriaxone Blood cultures preliminary showed no growth Urine cultures came back negative Chest x ray revealed Pulmonary vascular congestion Renal US revealed trace right perinephric fluid; no hydronephrosis. CT Abdomen Pelvis without contrast revealed no acute abnormalities; enlarged lower abdominal and left iliac chain lymph nodes; 2.7 cm right ovarian cyst; cholelithiasis. Total time spent 50 Minutes. Thank you for the consult Dietary Evaluation Review Comments: Nutrition Recommendation: 1) CCHO 60gm + cardiac diet 2) Monitor PO intake, lab values, weight trend, and I/O Expected Outcomes/Goals: Lab values to improve FU 3-5 days FILIPPO HAMMOND MD Feb 26, 2025 08:44
[2025-02-26] MEDS ORDERED: ATORVASTATIN 20 MG TAB PO SCH (22:00)
== END 2025-02-26 17:27 | disposition left against medical advice (07) | DRG 690 ==
LOC: ER 21:12 → EDBD 21:12 → OVERFLOW 02-23 00:51 → TELE-EAST 02-23 13:24
PROVIDERS: ADMIT Internal Medicine; ATTEND Internal Medicine Nephrology
DX: N30.01 Acute cystitis with hematuria (principal); I50.22 Chronic systolic (congestive) heart failure; N17.9 Acute kidney failure, unspecified; I11.0 Hypertensive heart disease with heart failure; E87.1 Hypo-osmolality and hyponatremia; E11.65 Type 2 diabetes mellitus with hyperglycemia; D64.9 Anemia, unspecified; Z79.01 Long term (current) use of anticoagulants; E86.0 Dehydration; E87.5 Hyperkalemia; Z20.822 Contact with and (suspected) exposure to COVID-19; I25.10 Atherosclerotic heart disease of native coronary artery without angina pectoris; Z53.29 Procedure and treatment not carried out because of patient's decision for other reasons; Z86.73 Personal history of transient ischemic attack (TIA), and cerebral infarction without residual deficits; Z98.61 Coronary angioplasty status
CPT/HCPCS: 36415; 71045; 74176; 76775; 80048; 80053; 81001; 82306; 82570; 82962; 83605; 83615; 83735; 83970; 84100; 84156; 84300; 84550; 85025; 87040; 87081; 87086; 87426; 87804; 96361; 96365; 97163; G0378; J1815